=== PATIENT | male | born 1950 | race Caucasian/White ===

== ENCOUNTER 2016-11-30 15:30 | Outpatient (RCR) | payer MEDICARE, OTHER | END 2016-12-04 08:44 | disposition home or self-care (01) | LOC: WSPT 15:30 | DX: M43.16 Spondylolisthesis, lumbar region (principal) | CPT/HCPCS: G8978-GP; G8979-GP; G8980-GP ==

== ENCOUNTER → 2017-09-30 | Outpatient (CLI) | payer MEDICARE, OTHER | LOC: COL.RAD 07:22 | DX: Z13.6 Encounter for screening for cardiovascular disorders (principal); I70.0 Atherosclerosis of aorta; Z82.49 Family history of ischemic heart disease and other diseases of the circulatory system ==

== ENCOUNTER → 2018-09-09 | Outpatient (CLI) | payer MEDICARE, OTHER | LOC: COL.RAD 07:42 | DX: M43.17 Spondylolisthesis, lumbosacral region (principal); M48.061 Spinal stenosis, lumbar region without neurogenic claudication; M51.36 Other intervertebral disc degeneration, lumbar region; Z98.1 Arthrodesis status ==

== ENCOUNTER 2019-04-07 08:45 | Outpatient (RCR) | payer MEDICARE, OTHER | END 2019-04-10 12:06 | disposition home or self-care (01) | LOC: WSPT 08:45 | DX: M54.16 Radiculopathy, lumbar region (principal); M43.17 Spondylolisthesis, lumbosacral region; M48.061 Spinal stenosis, lumbar region without neurogenic claudication; M47.818 Spondylosis without myelopathy or radiculopathy, sacral and sacrococcygeal region ==

== ENCOUNTER 2019-04-12 12:54 | Outpatient (RCR) | payer MEDICARE, OTHER | END 2019-04-12 13:28 | disposition home or self-care (01) | LOC: WSC 12:54 | DX: M43.17 Spondylolisthesis, lumbosacral region (principal); M48.061 Spinal stenosis, lumbar region without neurogenic claudication; M47.28 Other spondylosis with radiculopathy, sacral and sacrococcygeal region ==